=== PATIENT | male | born 2000 | race African-American/Black ===

== ENCOUNTER 2023-03-08 12:54 | Outpatient (CLI) | payer BC | END 2023-03-08 12:55 | disposition home or self-care (01) | LOC: BICRAD 12:54 | PROVIDERS: ATTEND Nurse Practitioner Family | DX: M54.6 Pain in thoracic spine (principal); M54.50 Low back pain, unspecified; M43.16 Spondylolisthesis, lumbar region; M43.17 Spondylolisthesis, lumbosacral region | CPT/HCPCS: 72072; 72120 ==